=== PATIENT | female | born 1990 | race Caucasian/White ===

== ENCOUNTER 2018-01-28 18:10 | Emergency (ER) | payer OTHER ==
--- NOTE | 2018-01-28 20:19 | ED Physician Documentation ---
PD HPI SKIN - Stated complaint Stated Complaint: BUG BITE - Chief complaint Chief Complaint: Wound - History obtained from History obtained from: Patient - History of Present Illness Timing - onset: Yesterday Timing - duration: Days (1-2) Timing - details: Gradual onset, Still present Quality / character: Painful, Burning, Discolored (red), Swelling. No: Draining Associated symptoms: No: Fever, Myalgias, N/V/D Contributing factors: Insect bite /sting (possibly as the initial swelling was abrupt, but did not see bug per se.) Similar symptoms before: Has not had sx before Recently seen: Not recently seen Review of Systems Constitutional: denies: Fever, Chills, Myalgias GI: denies: Nausea, Vomiting, Diarrhea Neurologic: denies: Focal weakness, Numbness PD PAST MEDICAL HISTORY - Past Medical History Past Medical History: No - Past Surgical History Past Surgical History: No - Present Medications Home Medications: Ambulatory Orders Medication Instructions Recorded Confirmed Alprazolam [Xanax] 0.5 mg PO DAILY 06/23/14 06/23/14 Oxycodone HCl/Acetaminophen 1 each PO DAILY 06/23/14 06/23/14 [Oxycodone-Acetaminophen 5-325] Naproxen 375 mg PO BID #15 tablet 01/28/18 Sulfamethox/Trimeth 800/160 1 each PO BID #14 tablet 01/28/18 [Bactrim Ds 800/160] - Allergies Allergies/Adverse Reactions: Allergies Allergy/AdvReac Type Severity Reaction Status Date / Time No Known Drug Allergies Allergy Verified 01/28/18 18:22 - Social History Does the pt smoke?: No Smoking Status: Never smoker Does the pt drink ETOH?: Yes Does the pt have substance abuse?: Yes - Immunizations Immunizations are current?: Yes - POLST Patient has POLST: No PD ED PE NORMAL - Vitals Vital signs reviewed: Yes - General General: Alert and oriented X 3, No acute distress, Well developed/nourished - Cardiac Cardiac: RRR, No murmur - Respiratory Respiratory: Clear bilaterally - Derm Derm: Normal color, Warm and dry, Other (left suprapatellar are of thigh with rounded area of redness and tenderness without fluctuance nor drainage. No skin lesions seen. No FB. There is some extension of the redness proximal. No red streaks. No inguinal adenopathy. ) - Neuro Neuro: Alert and oriented X 3, No motor deficit, No sensory deficit, Normal speech Results - Vitals Vitals: Vital Signs - 24 hr 01/28/18 01/28/18 18:17 20:29 Temperature 36.4 C L 36.7 C Heart Rate 82 86 Respiratory 18 18 Rate Blood Pressure 125/85 H 137/87 H O2 Saturation 99 98 Oxygen O2 Source Room air PD MEDICAL DECISION MAKING - ED course Complexity details: considered differential (infection of skin, could have been bug bite initially. ), d/w patient - Sepsis Event Vital Signs: Vital Signs - 24 hr 01/28/18 01/28/18 18:17 20:29 Temperature 36.4 C L 36.7 C Heart Rate 82 86 Respiratory 18 18 Rate Blood Pressure 125/85 H 137/87 H O2 Saturation 99 98 Oxygen O2 Source Room air Departure - Departure Disposition: 01 Home, Self Care Clinical Impression: Insect bite of thigh, left, infected Qualifiers: Encounter type: initial encounter Qualified Code(s): S70.362A - Insect bite ( nonvenomous), left thigh, initial encounter Condition: Stable Record reviewed to determine appropriate education?: Yes Instructions: ED Infec Skin Cellulitis Prescriptions: Naproxen 375 mg PO BID #15 tablet Sulfamethox/Trimeth 800/160 [Bactrim Ds 800/160] 1 each PO BID #14 tablet Comments: Warm moist towels to the area 2 3 times a day to improve blood flow and help fight the infection. Naproxen or ibuprofen twice daily for inflammation. Add Tylenol if needed for pain. Doxycycline twice a day for 5-7 days until it is fully cleared for presumed infection. Recheck if not improving over the next few days or if not fully cleared by 5-6 days. Discharge Date/Time: 01/28/18 20:54
[2018-01-28 20:30] VITALS: BP 137/87
[2018-01-28] MEDS ORDERED: DOXYCYCLINE 100 MG TABLET PO STA (20:41)
[2018-01-28] MEDS ORDERED: NAPROXEN 250 MG TABLET PO STA (20:41)
[2018-01-28] MEDS ORDERED: SULFAMETH/TRIMETH DS 800/160 MG TABLET PO STA (20:47)
== END 2018-01-28 20:54 | disposition home or self-care (01) ==
LOC: ED 18:10
DX: S70.362A Insect bite (nonvenomous), left thigh, initial encounter (principal); W57.XXXA Bitten or stung by nonvenomous insect and other nonvenomous arthropods, initial encounter
CPT/HCPCS: 99283; A9270